=== PATIENT | male | born 1990 | race Asian ===

== ENCOUNTER 2024-04-04 08:40 | Outpatient (CLI) | payer OTHER | END 2024-04-04 08:41 | disposition home or self-care (01) | LOC: CSHULT 08:40 | PROVIDERS: ATTEND Internal Medicine Gastroenterology | DX: R74.01 Elevation of levels of liver transaminase levels (principal); K21.9 Gastro-esophageal reflux disease without esophagitis; K76.9 Liver disease, unspecified | CPT/HCPCS: 76700 ==